=== PATIENT | male | born 2005 | race Two or more races ===

== ENCOUNTER 2024-07-01 13:08 | Inpatient (IN) | payer OTHER ==
[~2024-07-01] VITALS: Ht 160 cm; Wt 77.0 kg
[2024-07-01] MEDS ORDERED: ONDANSETRON HCL 2 MG/ML VIAL IV SCH (13:46)
[2024-07-01] MEDS ORDERED: LACTOBACILLUS ACIDOPHILUS 1 CAP CAP PO SCH (13:50)
[2024-07-01] MEDS ORDERED: DEXTROSE 5 % AND 0.9 % NACL 1,000 ML IV SCH (14:00)
[2024-07-01] MEDS ORDERED: 0.9 % SODIUM CHLORIDE 1,000 ML IV SCH (14:00)
[2024-07-01] MEDS ORDERED: FAMOTIDINE/PF 20 MG/2 ML VIAL IV SCH (14:00)
[2024-07-01] MEDS ORDERED: LACTOBACILLUS ACIDOPHILUS 1 CAP CAP PO ONE (14:21)
[2024-07-01] MEDS ORDERED: ONDANSETRON HCL 2 MG/ML VIAL ONE (14:21)
[2024-07-01] MEDS ORDERED: FAMOTIDINE/PF 20 MG/2 ML VIAL ONE (14:21)
[2024-07-01 15:11] LABS: HEMATOCRIT 39.1 % (39.0-48.0); HEMOGLOBIN 13.9 g/dL (13-16.00); MEAN CELL VOLUME 81.3 fL (80.0-100.00); MEAN CORPUSCULAR HEMOGLOBIN 28.8 pg (27.00-32.0); MEAN CORPUSCULAR HGB CONC 35.5 g/dl (32.0-36.0); PLATELET COUNT 326 K/uL (150-450)
[2024-07-01 15:35] LABS: ALBUMIN 3.8 gm/dL (3.4-5.0); BILIRUBIN TOTAL 0.27 mg/dL (0.3-1.2); CALCIUM 9.3 mg/dL (8.5-10.1); CREATININE SERUM 0.87 mg/dL (0.70-1.30); GFR 113.04; GLOBULINA 4.6 G/DL (2.4-3.5); POTASSIUM 3.65 mEq/L (3.5-5.1); TOTAL PROTEIN 8.4 gm/dL (6.4-8.2)
[2024-07-01 17:38] VITALS: BP 122/72
[2024-07-01 19:29] VITALS: BP 95/55; O2SAT 99
[2024-07-01 20:25] LABS: ob POSITIVE (NEGATIVE)
[2024-07-02] VITALS: BP 102/60; O2SAT 98
[2024-07-02 08:00] VITALS: BP 93/52; O2SAT 98
[2024-07-02 16:00] VITALS: BP 114/72; O2SAT 100
[2024-07-02] MEDS ORDERED: FAMOTIDINE/PF 20 MG/2 ML VIAL IV SCH (17:00)
[2024-07-03] VITALS: BP 97/67; O2SAT 99
[2024-07-03 08:00] VITALS: BP 114/73; O2SAT 99
[2024-07-03] MEDS ORDERED: INTESTINEX680 M1 PO (08:03)
== END 2024-07-03 10:36 | disposition home or self-care (01) | DRG 392 ==
LOC: EMR PED 13:09 → ER 13:09 → EMR PED 14:22 → PED 17:23 → SEC-K 17:23 → PED 18:47
PROVIDERS: Emergency Medicine Pediatric Emergency Medicine; General Practice; ADMIT Emergency Medicine; ATTEND Emergency Medicine
DX: K52.9 Noninfective gastroenteritis and colitis, unspecified (principal); E86.0 Dehydration